=== PATIENT | female | born 2000 | race Hispanic/Latino ===

== ENCOUNTER 2022-04-04 19:30 | Inpatient (IN) | payer OTHER ==
[~2022-04-04 19:30] MED LIST: Bupivacaine 0.25% HCL 30 ML VIAL ONE
[2022-04-04 21:32] VITALS: BMI 30.2
[2022-04-04] MEDS ORDERED: Lidocaine 1% (PF) 30 ML VIAL SC PRN (22:51)
[2022-04-04] MEDS ORDERED: Promethazine HCl 25 MG/ML VIAL IM PRN (22:51)
[2022-04-04] MEDS ORDERED: Ondansetron PF 4 MG/2 ML Vial IVP PRN (22:51)
[2022-04-04] MEDS ORDERED: Acetaminophen 500 MG TAB PO PRN (22:51)
[2022-04-04] MEDS ORDERED: Butorphanol Tartrate 1 MG/ML VIAL SLOW IVP PRN (22:51)
[2022-04-04] MEDS ORDERED: hydrALAZINE 20 MG/ML VIAL SLOW IVP PRN (22:51)
[2022-04-04] MEDS: Lactated Ringer's 1,000 ML IV SCH (23:00)
[2022-04-04] MEDS ORDERED: Penicillin G Potassium 5 MILL.UNITS in Sodium Chloride 0.9% 100 ML IVPB SCH (23:00)
[2022-04-04] MEDS ORDERED: Methylergonovine 0.2 MG/ML VIAL IM PRN (23:00)
[2022-04-04] MEDS ORDERED: Diphenoxylate HCl/Atropine Tablet PO PRN ×2 (23:00)
[2022-04-04] MEDS ORDERED: Carboprost 250 MCG/ML AMP IM PRN (23:00)
[2022-04-04] MEDS ORDERED: NS w/ Oxytocin 30 units 500 ML IV SCH ×2 (23:00)
[2022-04-04] MEDS ORDERED: HYDROcodone/Acetaminophen 5/325 mg Tablet PO PRN (23:00)
[2022-04-04] MEDS ORDERED: Ibuprofen 800 MG TAB PO PRN (23:00)
[2022-04-04] MEDS ORDERED: Misoprostol 200 MCG TAB PR PRN (23:00)
[2022-04-04 23:19] LABS: SARS-CoV-2 NAA Rapid Test Not Detected (NotDetected)
[2022-04-04] MEDS: Misoprostol 100 MCG TAB VAG SCH (23:30)
[2022-04-04 23:38] LABS: Hemoglobin 9.8 g/dL (12.0-15.5); Mean Corpuscular HGB CONC 32.2 g/dL (32.0-36.0); Mean Corpuscular Hemoglobin 25.5 pg (27.0-33.0); Mean Platelet Volume 11.2 fl (7.4-10.4); Platelet Count 346 10x3/uL (150-450); RBC Distribution Width 14.7 % (11.5-14.5); Red Blood Cell (RBC) Count 3.85 10x6/uL (3.90-5.03); White Blood Cell (WBC) Count 9.6 10x3/uL (3.5-10.5)
[2022-04-05 00:23] LABS: HBSAg Index 0.16 S/CO (0-0.99); Hep B Surf Ag Non-Reactive S/CO (NonReactive)
[2022-04-05 00:25] LABS: Syphilis Antibody Nonreactive (Nonreactive); Syphilis Antibody Index 0.02 S/CO (<1.00 Non-Reactive)
[2022-04-05] MEDS: Penicillin G 2.5 MILL.units 2.5 MILL.UNITS in Premix Bag 1 BAG IVPB SCH ×3 (03:44→11:35)
[2022-04-05] MEDS: Misoprostol 100 MCG TAB VAG SCH (03:45)
[2022-04-05] MEDS ORDERED: Fentanyl 2 mcg/Bup 0.1% Cadd 100 ML ONE (08:03)
[2022-04-05] MEDS ORDERED: diphenhydrAMINE 50 MG/ML VIAL IVP PRN (09:41)
[2022-04-05] MEDS ORDERED: Lactated Ringer's 500 ML IV PRN (09:41)
[2022-04-05] MEDS ORDERED: Moisturizing Cream (Eucerin) 113 GM JAR TOP PRN (09:41)
[2022-04-05] MEDS ORDERED: ePHEDrine Sulfate 50 MG/10 ML VIAL SLOW IVP PRN (09:41)
[2022-04-05] MEDS ORDERED: Ondansetron PF 4 MG/2 ML Vial IVP PRN ×2 (09:41→16:56)
[2022-04-05] MEDS ORDERED: Promethazine HCl 25 MG/ML VIAL IM PRN ×2 (09:41→16:56)
[2022-04-05] MEDS ORDERED: Naloxone HCl 0.4 mg/ml Vial IVP PRN ×2 (09:41)
[2022-04-05] MEDS ORDERED: Acetaminophen 325 MG TAB PO PRN (09:41)
[2022-04-05] MEDS ORDERED: Communication Order-Pharmacy FS SCH (09:45)
[2022-04-05] MEDS ORDERED: Fentanyl 2 mcg/Bupivacaine 0.1% Cassette 100 ML EPIDURAL SCH (09:45)
[2022-04-05] MEDS ORDERED: Misoprostol 200 MCG TAB VAG PRN (16:56)
[2022-04-05] MEDS ORDERED: NS w/ Oxytocin 30 units 500 ML IV SCH (16:56)
[2022-04-05] MEDS ORDERED: Bisacodyl 10 MG SUPP PR PRN (16:56)
[2022-04-05] MEDS ORDERED: Lanolin Ointment 7 GM TUBE TOP PRN (16:56)
[2022-04-05] MEDS ORDERED: Varicella virus, LIVE 0.5 ML VIAL SC ONE (16:56)
[2022-04-05] MEDS ORDERED: Measles/Mumps/Rubella 10 MCG/0.5 ML VIAL SC ONE (16:56)
[2022-04-05] MEDS ORDERED: Benzocaine-Menthol 82.5 ML CAN TOP PRN (16:56)
[2022-04-05] MEDS ORDERED: Zolpidem Tartrate 5 MG TAB PO PRN (16:56)
[2022-04-05] MEDS ORDERED: HYDROcodone/Acetaminophen 5/325 mg Tablet PO PRN (16:56)
[2022-04-05] MEDS ORDERED: Milk Of Magnesia 30 ML UDCUP PO PRN (16:56)
[2022-04-05] MEDS ORDERED: Methylergonovine 0.2 MG/ML VIAL IM PRN (16:56)
[2022-04-05] MEDS ORDERED: hydrALAZINE 20 MG/ML VIAL SLOW IVP PRN (16:56)
[2022-04-05] MEDS ORDERED: diphenhydrAMINE 25 MG CAP PO PRN (16:56)
[2022-04-05] MEDS ORDERED: Boostrix 0.5 ML (Tdap) VIAL (>/=7 yrs of age) IM ONE (16:56)
[2022-04-05] MEDS ORDERED: Preparation H Ointment 28 GM TUBE PR PRN (16:56)
[2022-04-05] MEDS: Ibuprofen 800 MG TAB PO SCH (17:43)
[2022-04-05] MEDS: Ferrous Sulfate 325 MG TAB PO SCH (17:49)
[2022-04-06] MEDS: Docusate 100 MG CAP PO SCH ×2 (01:10→09:36)
[2022-04-06] MEDS: Ibuprofen 800 MG TAB PO SCH ×3 (01:10→17:28)
[2022-04-06 04:46] LABS: Hemoglobin 9.2 g/dL (12.0-15.5); Mean Corpuscular HGB CONC 32.6 g/dL (32.0-36.0); Mean Corpuscular Hemoglobin 25.6 pg (27.0-33.0); Mean Corpuscular Volume 78.6 fl (81.6-98.3); Mean Platelet Volume 10.6 fl (7.4-10.4); Platelet Count 286 10x3/uL (150-450); RBC Distribution Width 14.8 % (11.5-14.5); Red Blood Cell (RBC) Count 3.59 10x6/uL (3.90-5.03); White Blood Cell (WBC) Count 11.7 10x3/uL (3.5-10.5)
[2022-04-06] MEDS: Misoprostol 100 MCG TAB VAG SCH (08:00)
[2022-04-06] MEDS: Prenatal Vitamin 1 TAB PO SCH (09:36)
[2022-04-06] MEDS: Ferrous Sulfate 325 MG TAB PO SCH ×2 (09:38→17:28)
[2022-04-07] MEDS: Ibuprofen 800 MG TAB PO SCH (00:23)
[2022-04-07] MEDS: Docusate 100 MG CAP PO SCH ×2 (00:23→09:14)
[2022-04-07] MEDS: Lactated Ringer's 1,000 ML IV SCH (07:17)
[2022-04-07] MEDS: Misoprostol 100 MCG TAB VAG SCH (07:17)
[2022-04-07] MEDS: Penicillin G 2.5 MILL.units 2.5 MILL.UNITS in Premix Bag 1 BAG IVPB SCH (07:18)
[2022-04-07 07:50] VITALS: BP 102/50; TEMP 97.9
[2022-04-07] MEDS: Ferrous Sulfate 325 MG TAB PO SCH (09:14)
[2022-04-07] MEDS: Prenatal Vitamin 1 TAB PO SCH (09:14)
== END 2022-04-07 12:30 | disposition home or self-care (01) | DRG 807 ==
LOC: CSHLD 20:31 → EEVIPCON 20:31 → CSHPP 04-05 16:40
PROVIDERS: ADMIT Obstetrics & Gynecology; ATTEND Obstetrics & Gynecology
PROC: 10E0XZZ Delivery of Products of Conception, External Approach (ICD-10-PCS; principal; 2022-04-05)
DX: O70.0 First degree perineal laceration during delivery (principal); Z37.0 Single live birth; Z3A.40 40 weeks gestation of pregnancy; Z20.822 Contact with and (suspected) exposure to COVID-19; O71.82 Other specified trauma to perineum and vulva
CPT/HCPCS: 36415; 51702; 85027; 86780; 86850; 86900; 86901; 87340; J2540; J3490; J7120; S0020; U0002